=== PATIENT | male | born 1950 | race Caucasian/White ===

== ENCOUNTER 2019-10-13 06:35 | Inpatient (IN) | payer OTHER, BC ==
[2019-09-29 13:00] VITALS: BMI 38.0
[2019-10-13] MEDS ORDERED: MIDAZOLAM HCL 2 MG/2 ML SINGLE DOSE VIAL ONE (07:06)
[2019-10-13] MEDS ORDERED: BUPIVACAINE LIPOSOME/PF (EXPAREL) 266 MG/20 ML VIAL ONE (07:06)
[2019-10-13] MEDS ORDERED: SODIUM CHLORIDE 0.9% P/F 10 ML VIAL IJ ONE (07:07)
[2019-10-13] MEDS ORDERED: CEFAZOLIN 3 GM in DEXTROSE 5%-WATER - 100 ML IVPB ONE (07:44)
[2019-10-13] MEDS ORDERED: TRANEXAMIC ACID 1000 MG/10 ML VIAL IVPUSH ONE (07:44)
[2019-10-13] MEDS ORDERED: CELECOXIB 200 MG CAPSULE PO ONE (07:44)
[2019-10-13] MEDS ORDERED: ceFAZolin SODIUM 1 GM VIAL ONE ×3 (07:47→17:26)
[2019-10-13] MEDS ORDERED: VANCOMYCIN 1,000 MG VIAL (RESTRICTED TO ID ONLY) ONE (07:48)
--- NOTE | 2019-10-13 07:58 | HP ---
Satellite [facility] - Chief Complaint Chief Complaint: left knee pain - Past Medical History Allergies/Adverse Reactions: Allergies Allergy/AdvReac Type Severity Reaction Status Date / Time No Known Allergies Allergy Verified 09/29/19 13:05 - Current Medications Current Medications: Home Medications Medication Instructions Recorded Aspirin [ASA -] 162 mg PO DAILY 09/29/19 Carvedilol 12.5 mg PO HS 09/29/19 Ciclopirox Olamine [Ciclopirox] 15 gm TP HS 09/29/19 Diltiazem HCl [Cartia Xt] 120 mg PO HS 09/29/19 Ferrous Sulfate [Iron] 325 mg PO DAILY 09/29/19 Insulin Glargine,Hum.rec.anlog 15 unit SQ DAILY 09/29/19 [Lantus] Multivit-Mins/Iron/Folic/Lycop 1 each PO DAILY 09/29/19 [Centrum Men's Tablet] Olmesartan Medoxomil [Benicar (Nf)] 40 mg PO HS 09/29/19 Spironolactone [Aldactone] 25 mg PO HS 09/29/19 metFORMIN HCL [Metformin HCl] 500 mg PO QID 09/29/19 Satellite Physical Exam - Physical Examination Vital Signs: Vital Signs Period Temp Pulse Resp BP Sys/Prather Pulse Ox Last 24 Hr 98.2 F 60 18 127/75 General Appearance: Well Nourished, Well Developed, Alert & Oriented x3 ENT: Clear Lung: Normal air movement Extremities: Other (left knee- + swelling, + ttp, decr rom, nvi, xrays show grade 4 tricomaprtmental djd) Neurological: Intact, Alert, Oriented Satellite Impression/Plan - Impression/Plan Impression: left knee djd Operative Procedure: left ila tkr Date to be Performed: 10/13/19
[2019-10-13] MEDS ORDERED: ONDANSETRON 4 MG/2 ML VIAL ONE (08:54)
[2019-10-13] MEDS ORDERED: PROPOFOL 20 ML ONE ×2 (08:54→10:17)
[2019-10-13] MEDS ORDERED: TRANEXAMIC ACID 1000 MG/10 ML VIAL ONE (08:54)
[2019-10-13] MEDS ORDERED: DEXAMETHASONE SOD PHOSPHATE 4 MG/1 ML VIAL ONE (08:54)
[2019-10-13] MEDS ORDERED: SUCCINYLCHOLINE CHLORIDE 200 MG/10 ML SYRINGE ONE (09:04)
[2019-10-13] MEDS ORDERED: BUPIVACAINE HCL/PF 0.5% (5MG/ML) 10 ML VIAL ONE (09:06)
[2019-10-13] MEDS ORDERED: MAGNESIUM HYDROX 2400MG/30ML ORAL SUSPENSION 30 ML CUP PO PRN (09:41)
[2019-10-13] MEDS ORDERED: ONDANSETRON 4 MG/2 ML VIAL IVPUSH PRN (09:41)
[2019-10-13] MEDS ORDERED: MAG HYDROX/AL HYDROX/SIMETH 30 ML UNIT-DOSE CUP PO PRN (09:41)
[2019-10-13] MEDS ORDERED: LACTATED RINGERS SOLUTION 1,000 ML IV SCH (09:45)
--- NOTE | 2019-10-13 09:48 | EKG ---
Test Reason : Blood Pressure : / mmHG Vent. Rate : 092 BPM Atrial Rate : 092 BPM P-R Int : 168 ms QRS Dur : 138 ms QT Int : 388 ms P-R-T Axes : 046 -51 094 degrees QTc Int : 479 ms SINUS RHYTHM WITH FREQUENT PREMATURE VENTRICULAR COMPLEXES POSSIBLE LEFT ATRIAL ENLARGEMENT LEFT AXIS DEVIATION LEFT BUNDLE BRANCH BLOCK ABNORMAL ECG NO PREVIOUS ECGS AVAILABLE Confirmed by MD Pablo, Carlitos ([id number]) on 10/13/2019 9:48:29 AM Referred By: Abraham Royal Confirmed By:Carlitos Shah MD
[2019-10-13] MEDS ORDERED: PATIENT'S OWN MEDICATION (NON-FORMULARY) (Insulin Glargine,Hum.Rec.Anlog [Lantus] 15 UNIT) SQ SCH (10:00)
[2019-10-13] MEDS ORDERED: MULTIVIT MINS PO SCH (10:00)
[2019-10-13] MEDS ORDERED: [UNRECOGNIZED DRUG - OTHER] PO SCH (10:00)
[2019-10-13] MEDS ORDERED: FOLIC PO SCH (10:00)
[2019-10-13] MEDS ORDERED: LYCOP PO SCH (10:00)
[2019-10-13] MEDS ORDERED: IRON PO SCH (10:00)
[2019-10-13] MEDS ORDERED: MULTIVITAMINS (DAILY MVI) TABLET (FP) PO SCH (10:00)
[2019-10-13] MEDS ORDERED: VANCOMYCIN 1,000 MG VIAL (RESTRICTED TO ID ONLY) IVPB ONE (10:50)
[2019-10-13] MEDS: ACETAMINOPHEN 325 MG TABLET (FP) PO SCH ×3 (12:00→23:49)
[2019-10-13] MEDS ORDERED: traMADol HCL 50 MG TABLET PO PRN (12:02)
[2019-10-13] MEDS ORDERED: oxyCODONE HCL 5 MG TABLET PO PRN (12:02)
[2019-10-13] MEDS: oxyCODONE HCL 5 MG TABLET PO PRN ×2 (14:36→23:48)
[2019-10-13] MEDS: metFORMIN HCL 500 MG TABLET (FP) PO SCH ×4 (15:00→21:13)
[2019-10-13] MEDS: INSULIN SLIDING SCALE (NOVOLOG) 1 VIAL SQ SCH ×3 (15:13→21:21)
[2019-10-13] MEDS: MULTIVITAMINS THER W-MINERALS COMBO TABLET (FP) PO SCH (15:41)
[2019-10-13] MEDS: FERROUS SO4 325 MG TABLET (FP) PO SCH (15:41)
[2019-10-13] MEDS: PANTOPRAZOLE 40 MG TABLET (FP) PO SCH (15:41)
--- NOTE | 2019-10-13 17:06 | SPEC ---
DATE OF OPERATION: 10/13/2019 PREOPERATIVE DIAGNOSIS: Degenerative joint disease, left knee. POSTOPERATIVE DIAGNOSIS: Degenerative joint disease, left knee. PROCEDURE: Press-Fit left total knee replacement with robotic-assisted navigation (MAKOplasty). SURGICAL ATTENDING: Abraham Royal MD ORDER DEPARTMENT SUPERVISOR: AMPARO Reeves ANESTHESIA: Regional and spinal. CLOSURE: A Triathlon Press-Fit knee system with a 7 femur, 6 tibia, 11 PS polyethylene, a 38 Press-Fit patella; No. 1 Vicryl, fascia; 0 and 2-0 for subcutaneous; and 3-0 Monocryl subcuticular with skin glue for skin; 4-0 undyed Vicryl for pin sites. ESTIMATED BLOOD LOSS: Less than 100 mL. COMPLICATIONS: None. CONDITION: To recovery room in stable condition. DESCRIPTION OF OPERATIVE PROCEDURE: Patient was taken to the operating room on October 13, 2019. Regional and spinal anesthesia was administered by the anesthesiologist. IV Kefzol was administered prophylactically prior to the case as well as TXA. The left lower extremity was prepped and draped in the usual sterile fashion. The midline 10- to 12-cm longitudinal incision was made. Hemostasis was achieved with Bovie cautery. Sharp dissection was carried down to the extensor mechanism which was perform the procedure. Medial parapatellar arthrotomy was then performed, leaving a cuff of tissue for later closure. The patella was inverted and the knee was flexed up. The fat pad was excised. Subperiosteal dissection was done on the anteromedial proximal tibia until the knee was able to be brought forward. This was facilitated by taking the ACL, PCL and medial and lateral menisci. Checkpoints were placed in both the femur and in the tibia. Two parallel threaded pins were drilled superior to the knee joint through the already made incision from anterior to posterior just going through the anterior cortex but just engaging but not going through the posterior cortex. Two threaded pins were drilled through 2 small stab incisions in parallel fashion 1 handbreadth below the tibial tubercle through the anterior cortex of the tibia and engaging but not going through the posterior cortex. Both sets of pins were attached to navigation arrays for the GABRIELA system. The knee was then registered with the navigation system with center of rotation of the hip, medial and lateral malleoli and multiple sites both on the tibia and on the femur. Confirmation of excellent registration was confirmed by "popping the bubbles." At this time, the knee was thoroughly inspected to remove all osteophytes around the knee. The knee was then tensioned in varus/valgus at both full extension and at 90 degrees of flexion to ascertain our gaps. The virtual position of the components was optimized to ensure equal gaps throughout the range of motion. Once this was performed, the robot was brought into the field, was registered. The bone was cut as per the specifications on both the tibia and on the femur. The box cuts were then made as well. Excellent trial stability was obtained on the femur. The tibial baseplate was allowed to "find itself" and then was clipped into place. Confirmation of excellent external rotation of that component was confirmed by the navigation device as well.The patella was calibered for thickness and cut at the appropriate level. The appropriate lollipop was used to drill 3 holes in the patella and a trial asymmetric patellar button was applied. The knee was taken through a range of motion and found to have excellent stability from full extension to full flexion with excellent tracking of the patella. The trial components were then removed. The lug holes were drilled in the femur. The cementless keel was punched in the tibia. The real Press-Fit components were malleted into place, first with the tibia and then with the femur, and then the patella was crimped into place as well. The real polyethylene liner was then clipped into place. Range of motion, stability and tracking were as described earlier. The knee was thoroughly irrigated with copious amounts of irrigation. Vancomycin powder was placed inside the joint. The medial parapatellar arthrotomy was then closed using No. 1 Vicryl interrupted suture. Post closure of the arthrotomy, the knee was taken through a range of motion and found to have no undue tension on the repair. The subcutaneous was then pulse antibiotic irrigated, closed with 0 and 2-0 Vicryl and 3-0 Monocryl subcuticular with skin glue for the skin. Prior to closure, the checkpoints were removed as were the threaded pins. The tibial pin sites were closed with 4-0 undyed Vicryl. A sterile pressure Aquacel dressing was applied. No tourniquet was used during the case. The total blood loss was approximately 100 mL. No complication. Patient was transferred to recovery in stable condition. Chris RHODES/[id number]
[2019-10-13] MEDS ORDERED: DEXTROSE 5%-WATER 100 ML IVPB ONE (17:26)
[2019-10-13] MEDS: CEFAZOLIN 3 GM in DEXTROSE 5%-WATER 100 ML IVPB SCH (17:50)
[2019-10-13] MEDS: SPIRONOLACTONE 25 MG TABLET (FP) PO SCH (21:13)
[2019-10-13] MEDS: SENNOSIDES/DOCUSATE COMBO (SENNA PLUS) TABLET (UD) PO SCH (21:14)
[2019-10-13] MEDS: oxyCODONE HCL 10 MG SUSTAINED ACTING TABLET PO SCH (21:14)
[2019-10-13] MEDS: CARVEDILOL 12.5 MG TABLET (FP) PO SCH (21:14)
[2019-10-13] MEDS: VALSARTAN 160 MG TABLET (UD) PO SCH (21:14)
[2019-10-13] MEDS ORDERED: PATIENT'S OWN MEDICATION (NON-FORMULARY) (Olmesartan Medoxomil 40 MG) PO SCH (22:00)
[2019-10-14] MEDS ORDERED: DEXTROSE 5%-WATER 100 ML IVPB ONE (00:21)
[2019-10-14] MEDS ORDERED: ceFAZolin SODIUM 1 GM VIAL ONE (00:21)
[2019-10-14] MEDS: CEFAZOLIN 3 GM in DEXTROSE 5%-WATER 100 ML IVPB SCH (02:05)
[2019-10-14] MEDS: oxyCODONE HCL 5 MG TABLET PO PRN (06:06)
[2019-10-14] MEDS: ACETAMINOPHEN 325 MG TABLET (FP) PO SCH ×3 (06:07→18:40)
[2019-10-14] MEDS: INSULIN SLIDING SCALE (NOVOLOG) 1 VIAL SQ SCH ×4 (06:08→21:39)
[2019-10-14] MEDS: INSULIN (LEVEMIR) 100 UNITS/ML UNITS SQ SCH (08:00)
[2019-10-14 08:06] LABS: HEMATOCRIT 35.6 % (35.4-49); HEMOGLOBIN 12.2 GM/dl (11.7-16.9); MCH 33.2 pg (25.7-33.7); MCHC 34.2 g/dl (32.0-35.9); MEAN PLT VOLUME 8.9 fl (7.5-11.1); PLATELET COUNT 197 K/MM3 (134-434); RBC 3.67 M/mm3 (4.00-5.60); RDW 13.4 % (11.9-15.9); WHITE BLOOD COUNT 15.9 K/mm3 (4.0-10.8)
[2019-10-14] MEDS: MULTIVITAMINS THER W-MINERALS COMBO TABLET (FP) PO SCH ×2 (08:34→10:00)
[2019-10-14] MEDS: SENNOSIDES/DOCUSATE COMBO (SENNA PLUS) TABLET (UD) PO SCH ×3 (08:34→21:41)
--- NOTE | 2019-10-14 08:35 | CONSULT ---
Consult - Past Medical History Cardio/Vascular: Yes: HTN, Hyperlipdemia, Other (cardiomyopathy) Gastrointestinal: Yes: Constipation, GERD Musculoskeletal: Yes: Osteoarthritis Endocrine: Yes: Diabetes Mellitus, Other (obesity) - Alcohol/Substance Use Hx Alcohol Use: No - Smoking History Smoking history: Former smoker Have you smoked in the past 12 months: Yes If you are a former smoker, when did you quit?: 1 month Home Medications - Allergies Allergies/Adverse Reactions: Allergies Allergy/AdvReac Type Severity Reaction Status Date / Time lisinopril AdvReac Severe COUGHING Verified 10/13/19 08:32 - Home Medications Home Medications: Ambulatory Orders Carvedilol 12.5 mg PO HS 09/29/19 Ciclopirox Olamine [Ciclopirox] 15 gm TP HS 09/29/19 Diltiazem HCl [Cartia Xt] 120 mg PO HS 09/29/19 Ferrous Sulfate [Iron] 325 mg PO DAILY 09/29/19 Insulin Glargine,Hum.rec.anlog [Lantus] 15 unit SQ DAILY 09/29/19 Multivit-Mins/Iron/Folic/Lycop [Centrum Men's Tablet] 1 each PO DAILY 09/29/19 Olmesartan Medoxomil [Benicar -] 40 mg PO HS 09/29/19 Spironolactone [Aldactone -] 25 mg PO HS 09/29/19 metFORMIN HCL [Metformin HCl] 500 mg PO QID 09/29/19 Aspirin [ASA -] 325 mg PO DAILY@0800 tablet 10/15/19 Oxycodone HCl/Acetaminophen [Percocet 5-325 mg Tablet -] 1 - 2 tab PO Q6H #50 tab MDD 8 10/15/19 Review of Systems - Review of Systems Cardiovascular: denies: Chest Pain Respiratory: denies: Cough, SOB Gastrointestinal: reports: Constipation Musculoskeletal: reports: Joint Pain Neurological: reports: No Symptoms Physical Exam Vital Signs: Vital Signs Temperature 97.6 F 10/14/19 06:00 Pulse Rate 87 10/14/19 06:00 Respiratory Rate 20 10/14/19 06:00 Blood Pressure 125/69 10/14/19 06:00 O2 Sat by Pulse Oximetry (%) 92 L 10/14/19 06:00 Cardiovascular: Yes: S1, S2 Respiratory: Yes: Regular, CTA Bilaterally Gastrointestinal: Yes: Normal Bowel Sounds, Soft Edema: No Wound/Incision: Yes: Dressing Dry and Intact Neurological: Yes: Alert, Oriented Labs: CBC, BMP 10/14/19 07:27 Problem List - Problems (1) Diabetes Assessment/Plan: metFORMIN HCL [Glucophage -] 500 mg PO QID Insulin (Levemir) [Levemir Vial] 15 units SQ ACBK bgm Code(s): E11.9 - TYPE 2 DIABETES MELLITUS WITHOUT COMPLICATIONS (2) HTN (hypertension) Assessment/Plan: Carvedilol [Coreg -] 12.5 mg PO HS Diltiazem Cd [Cardizem Cd -] 120 mg PO HS Spironolactone [Aldactone -] 25 mg PO HS Valsartan [Diovan -] 320 mg PO HS Code(s): I10 - ESSENTIAL (PRIMARY) HYPERTENSION (3) Obesity Code(s): E66.9 - OBESITY, UNSPECIFIED (4) Osteoarthritis Assessment/Plan: s/p left ila tkr pod #1 Pantoprazole Sodium [Protonix -] 40 mg PO DAILY Aspirin [ASA -] 325 mg PO DAILY@0800 Code(s): M19.90 - UNSPECIFIED OSTEOARTHRITIS, UNSPECIFIED SITE Assessment/Plan Orders 10/13/19 10:00 Pantoprazole Sodium [Protonix -] 40 mg PO DAILY metFORMIN HCL [Glucophage -] 500 mg PO QID 10/13/19 22:00 Carvedilol [Coreg -] 12.5 mg PO HS Diltiazem Cd [Cardizem Cd -] 120 mg PO HS Spironolactone [Aldactone -] 25 mg PO HS Valsartan [Diovan -] 320 mg PO HS 10/14/19 07:00 Insulin (Levemir) [Levemir Vial] 15 units SQ ACBK 10/14/19 08:00 Aspirin [ASA -] 325 mg PO DAILY@0800
[2019-10-14] MEDS: metFORMIN HCL 500 MG TABLET (FP) PO SCH ×4 (09:24→21:41)
[2019-10-14] MEDS: oxyCODONE HCL 10 MG SUSTAINED ACTING TABLET PO SCH ×2 (09:24→21:40)
[2019-10-14] MEDS: FERROUS SO4 325 MG TABLET (FP) PO SCH (09:24)
[2019-10-14] MEDS: ASPIRIN 325 MG TABLET PO SCH (09:24)
[2019-10-14] MEDS: PANTOPRAZOLE 40 MG TABLET (FP) PO SCH (09:25)
--- NOTE | 2019-10-14 09:56 | PN ---
Progress Note (short form) - Note Progress Note: Ortho Pt seen and examined s/p left ila tkr pod #1 Selected Entries 10/14/19 06:00 Temperature 97.6 F Pulse Rate 87 Respiratory 20 Rate Blood Pressure 125/69 Laboratory Tests 10/14/19 07:27 WBC 15.9 H Hgb 12.2 Hct 35.6 Plt Count 197 dressing c/d/i, calf soft, nt rom 0-30, nvi a/p PT dvt ppx pain control d/c home tomorrow if stable
[2019-10-14 12:23] LABS: ALBUMIN 3.4 g/dl (3.4-5.0); BILIRUBIN,TOTAL 0.8 mg/dl (0.2-1); CALCIUM 8.2 mg/dl (8.5-10); CREATININE 0.7 mg/dl (0.55-1.3); POTASSIUM 4.1 mmol/L (3.5-5.1); TOT PROT 5.6 g/dl (6.4-8.2)
[2019-10-14] MEDS: CARVEDILOL 12.5 MG TABLET (FP) PO SCH (21:41)
[2019-10-14] MEDS: SPIRONOLACTONE 25 MG TABLET (FP) PO SCH (21:41)
[2019-10-14] MEDS: VALSARTAN 160 MG TABLET (UD) PO SCH (21:41)
[2019-10-15] MEDS: ACETAMINOPHEN 325 MG TABLET (FP) PO SCH ×3 (00:40→14:47)
[2019-10-15] MEDS: INSULIN (LEVEMIR) 100 UNITS/ML UNITS SQ SCH (07:33)
--- NOTE | 2019-10-15 07:35 | PN ---
Progress Note, Physician History of Present Illness: c/o feeling diaphoretic this am had sob which is improved - Current Medication List Current Medications: Active Medications Acetaminophen (Tylenol -) 650 mg PO Q6H [facility] Stop: 10/16/19 12:14 Last Admin: 10/15/19 06:42 Dose: 650 mg Al Hydroxide/Mg Hydroxide (Mylanta Oral Suspension -) 30 ml PO Q4H PRN PRN Reason: DYSPEPSIA Aspirin (Asa -) 325 mg PO DAILY@0800 [facility] Last Admin: 10/14/19 09:24 Dose: 325 mg Carvedilol (Coreg -) 12.5 mg PO [facility] Last Admin: 10/14/19 21:41 Dose: 12.5 mg Diltiazem HCl (Cardizem Cd -) 120 mg PO [facility] Last Admin: 10/14/19 21:41 Dose: 120 mg Ferrous Sulfate (Feosol -) 325 mg PO DAILY [facility] Last Admin: 10/14/19 09:24 Dose: 325 mg Insulin Aspart (Novolog Vial Sliding Scale -) 1 vial SQ [facility]; Protocol Last Admin: 10/14/19 21:39 Dose: 4 units Insulin Detemir (Levemir Vial) 15 units SQ ACBK [facility] Last Admin: 10/14/19 08:00 Dose: 15 units Magnesium Hydroxide (Milk Of Magnesia -) 30 ml PO PRN PRN PRN Reason: CONSTIPATION Metformin HCl (Glucophage -) 500 mg PO QID [facility] Last Admin: 10/14/19 21:41 Dose: 500 mg Multivitamins/Minerals (Theragran-M) 1 each PO DAILY [facility] Last Admin: 10/14/19 10:00 Dose: 1 each Ondansetron HCl (Zofran Injection) 4 mg IVPUSH Q6H PRN PRN Reason: NAUSEA Oxycodone HCl (Roxicodone -) 5 mg PO Q3H PRN PRN Reason: PAIN LEVEL 4 - 6 Oxycodone HCl (Roxicodone -) 10 mg PO Q3H PRN PRN Reason: PAIN LEVEL 7 - 10 Last Admin: 10/14/19 06:06 Dose: 10 mg Oxycodone HCl (Oxycontin -) 10 mg PO BID [facility] Stop: 10/16/19 12:04 Last Admin: 10/14/19 21:40 Dose: 10 mg Pantoprazole Sodium (Protonix -) 40 mg PO DAILY [facility] Last Admin: 10/14/19 09:25 Dose: 40 mg Senna/Docusate Sodium (Pericolace -) 2 tablet PO BID [facility] Last Admin: 10/14/19 21:41 Dose: 2 tablet Spironolactone (Aldactone -) 25 mg PO HS [facility] Last Admin: 10/14/19 21:41 Dose: 25 mg Tramadol HCl (Ultram -) 50 mg PO Q3H PRN PRN Reason: PAIN LEVEL 1 - 3 Valsartan (Diovan -) 320 mg PO [facility] Last Admin: 10/14/19 21:41 Dose: 320 mg - Objective Vital Signs: Vital Signs Temperature 98.3 F 10/15/19 06:00 Pulse Rate 82 10/15/19 06:00 Respiratory Rate 20 10/15/19 06:00 Blood Pressure 154/77 10/15/19 06:00 O2 Sat by Pulse Oximetry (%) 93 L 10/15/19 06:00 Cardiovascular: Yes: S1, S2 Respiratory: Yes: Regular, CTA Bilaterally Gastrointestinal: Yes: Normal Bowel Sounds, Soft Edema: No Labs: CBC, BMP 10/14/19 11:55 Problem List - Problems (1) Diabetes Assessment/Plan: metFORMIN HCL [Glucophage -] 500 mg PO QID Insulin (Levemir) [Levemir Vial] 15 units SQ ACBK bgm Code(s): E11.9 - TYPE 2 DIABETES MELLITUS WITHOUT COMPLICATIONS (2) HTN (hypertension) Assessment/Plan: Carvedilol [Coreg -] 12.5 mg PO HS Diltiazem Cd [Cardizem Cd -] 120 mg PO HS Spironolactone [Aldactone -] 25 mg PO HS Valsartan [Diovan -] 320 mg PO HS Code(s): I10 - ESSENTIAL (PRIMARY) HYPERTENSION (3) Osteoarthritis Assessment/Plan: s/p left ila tkr pod #1 Pantoprazole Sodium [Protonix -] 40 mg PO DAILY Aspirin [ASA -] 325 mg PO DAILY@0800 Code(s): M19.90 - UNSPECIFIED OSTEOARTHRITIS, UNSPECIFIED SITE (4) Obesity Code(s): E66.9 - OBESITY, UNSPECIFIED (5) Diaphoresis Assessment/Plan: labs/cxr/ekg Code(s): R61 - GENERALIZED HYPERHIDROSIS
[2019-10-15] MEDS: INSULIN SLIDING SCALE (NOVOLOG) 1 VIAL SQ SCH ×4 (07:36→22:09)
--- NOTE | 2019-10-15 07:52 | PN ---
Progress Note (short form) - Note Progress Note: Ortho Pt seen and examined s/p left ila tkr pod #2, diaphoretic, currentyl having ekg and chest xray Selected Entries 10/15/19 06:00 Temperature 98.3 F Pulse Rate 82 Respiratory 20 Rate Blood Pressure 154/77 Laboratory Tests 10/15/19 07:25 WBC Pending Hgb Pending Hct Pending Plt Count Pending dressing c/d/i, calf soft, nt rom 0-40, nvi a/p med f/u PT dvt ppx pain control will follow
--- NOTE | 2019-10-15 07:54 | DS ---
Physical Examination Vital Signs: Vital Signs Temperature 98.3 F 10/15/19 06:00 Pulse Rate 82 10/15/19 06:00 Respiratory Rate 20 10/15/19 06:00 Blood Pressure 154/77 10/15/19 06:00 O2 Sat by Pulse Oximetry (%) 93 L 10/15/19 06:00 Labs: CBC, BMP 10/14/19 11:55 Discharge Summary Problems reviewed: Yes Reason For Visit: OSTEOARTHRITIS Procedures: Principal: left tkr Hospital Course: admitted for elective left ila tkr, post-op per protocol, stable for d/c Condition: Good - Instructions Diet, Activity, Other Instructions: Post-op Instructions-Total Knee Replacement Call the office for a follow-up appointment in 1 week - [phone] Aspirin 325mg daily for 6 weeks. Pain medication was sent into your pharmacy. Apply Graduated Compression Stockings (TEDs) to both lower extremities- remove daily for hygiene ONLY Apply Sequential Compression Device (SCDs) to both Lower extremities remove for PT and hygiene ONLY Apply cold packs to affected area for 15 minutes every 2 hours. Physical Therapist will come to your home for the first 5 days. You will be set up with outpatient PT at your first post-operative visit. Patient may ambulate as tolerated-encourage self care (at least every 2-3 hours while awake) with walker or cane Maintain Aquacel (waterproof) dressing to operative wound (will be removed by surgeon at first office visit) Shower with Aquacel dressing in place-if Aquacel integrity compromised, remove and apply dry sterile dressing and notify Orthopedist. DO NOT SHOWER unless Orthopedists approves without Aquacel dressing CONTACT THE OFFICE FOR ANY CHANGE IN YOUR CONDITION (for example-fever greater than 102 degrees, excessive bleeding from operative site, purulent drainage, severe swelling or pain) GO TO THE EMERGENCY ROOM IF THERE IS A MEDICAL EMERGENCY Knee Precautions: * Keep a rolled towel under affected heel while in bed or chair (to keep knee in extension) * Keep affected leg elevated except during mealtimes * DO NOT PLACE PILLOW UNDER AFFECTED KNEE * If you have any questions, please do not hesitate to call the office - . Referrals: Abraham Royal MD [Staff Physician] - Disposition: VNS/HOME HEALTH CARE - Home Medications Comprehensive Discharge Medication List: Ambulatory Orders Aspirin [ASA -] 162 mg PO DAILY 09/29/19 Carvedilol 12.5 mg PO HS 09/29/19 Ciclopirox Olamine [Ciclopirox] 15 gm TP HS 09/29/19 Diltiazem HCl [Cartia Xt] 120 mg PO HS 09/29/19 Ferrous Sulfate [Iron] 325 mg PO DAILY 09/29/19 Insulin Glargine,Hum.rec.anlog [Lantus] 15 unit SQ DAILY 09/29/19 Multivit-Mins/Iron/Folic/Lycop [Centrum Men's Tablet] 1 each PO DAILY 09/29/19 Olmesartan Medoxomil [Benicar (Nf)] 40 mg PO HS 09/29/19 Spironolactone [Aldactone] 25 mg PO HS 09/29/19 metFORMIN HCL [Metformin HCl] 500 mg PO QID 09/29/19
[2019-10-15 08:01] LABS: HEMATOCRIT 36.3 % (35.4-49); HEMOGLOBIN 11.8 GM/dl (11.7-16.9); MCH 31.6 pg (25.7-33.7); MCHC 32.5 g/dl (32.0-35.9); MEAN PLT VOLUME 9.2 fl (7.5-11.1); PLATELET COUNT 207 K/MM3 (134-434); RBC 3.74 M/mm3 (4.00-5.60); RDW 13.4 % (11.9-15.9); WHITE BLOOD COUNT 19.8 K/mm3 (4.0-10.8)
[2019-10-15] MEDS: ASPIRIN 325 MG TABLET PO SCH (08:53)
[2019-10-15 09:38] LABS: ALBUMIN 3.2 g/dl (3.4-5.0); BILIRUBIN,TOTAL 1.2 mg/dl (0.2-1); CALCIUM 7.9 mg/dl (8.5-10); CREATININE 0.9 mg/dl (0.55-1.3); POTASSIUM 3.8 mmol/L (3.5-5.1); TOT PROT 5.8 g/dl (6.4-8.2)
[2019-10-15] MEDS: metFORMIN HCL 500 MG TABLET (FP) PO SCH ×2 (10:05→15:04)
[2019-10-15] MEDS: FERROUS SO4 325 MG TABLET (FP) PO SCH (10:05)
[2019-10-15] MEDS: PANTOPRAZOLE 40 MG TABLET (FP) PO SCH (10:06)
[2019-10-15] MEDS: oxyCODONE HCL 10 MG SUSTAINED ACTING TABLET PO SCH ×2 (10:06→22:03)
[2019-10-15] MEDS: MULTIVITAMINS THER W-MINERALS COMBO TABLET (FP) PO SCH (10:06)
[2019-10-15] MEDS: SENNOSIDES/DOCUSATE COMBO (SENNA PLUS) TABLET (UD) PO SCH ×2 (10:06→22:03)
--- NOTE | 2019-10-15 10:58 | PN ---
Progress Note (short form) - Note Progress Note: PULMONARY CONSULTATION DICTATED 10/15/19 IMP DYSPNEA/DAIPHORESIS S/P LEFT TKR ?ATELECTASIS,?PE,?CARDIAC CARDIOMYOPATHY DM HTN H/O TOBACCO USE OBESITY PLAN O2 INCENTIVE SPIROMETER D-DIMER IF ELEVATED CHEST CTA PT DVT PROPHYLAXIS DR REMY Problem List - Problems (1) Dyspnea Code(s): R06.00 - DYSPNEA, UNSPECIFIED (2) Diabetes Code(s): E11.9 - TYPE 2 DIABETES MELLITUS WITHOUT COMPLICATIONS (3) Diaphoresis Code(s): R61 - GENERALIZED HYPERHIDROSIS (4) HTN (hypertension) Code(s): I10 - ESSENTIAL (PRIMARY) HYPERTENSION (5) Obesity Code(s): E66.9 - OBESITY, UNSPECIFIED (6) Osteoarthritis Code(s): M19.90 - UNSPECIFIED OSTEOARTHRITIS, UNSPECIFIED SITE
--- NOTE | 2019-10-15 11:30 | CONS ---
PULMONARY CONSULTATION DATE OF CONSULTATION: 10/15/2019 REFERRING PHYSICIAN: Best Abdullahi MD HISTORY: Patient is a 69-year-old male past medical history of cardiomyopathy, hyperlipidemia, GERD, hypertension, obesity, diabetes, osteoarthritis, history of tobacco use approximately a pack per day for many years quit 2012. Admitted to [facility] on October 13 for left total knee replacement. Patient underwent a left total knee replacement with robotic-assisted navigation MAKOplasty on October 13. Postoperative course essentially was unremarkable until this morning when he was noted to be diaphoretic and short of breath. He denied any complaints of chest pain, nausea, or vomiting. taking all of his pills at once. Patient has complaints of dyspnea on exertion. Denies any chest pains or palpitations. Denies any cough or hemoptysis. Patient underwent a chest x-ray. Revealed no acute infiltrates. EKG revealed no acute changes. PAST MEDICAL HISTORY: Again includes cardiomyopathy, hypertension, diabetes, obesity, osteoarthritis, and likely obstructive sleep apnea. REVIEW OF SYSTEMS: Positive dyspnea on exertion. No chest pain, no palpitations, no cough, no hemoptysis, no abdominal pain. Positive left lower extremity knee pain secondary a recent incision. CURRENT MEDICATIONS: Include Zofran, Mylanta, Coreg, Glucophage, Cardizem, Milk of Magnesia, Kellie-Colace, NovoLog, Levemir, Feosol, Aldactone, aspirin, Roxicodone, Ultram, and Protonix. SOCIAL HISTORY: History of tobacco use. Quit in 2012. 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 PHYSICAL EXAMINATION: General: Patient is an obese male awake and alert. Mildly dyspneic. No acute distress. Vital Signs: He is afebrile. Blood pressure 154/77, respiratory rate is 20, O2 saturation is 93% on 2 L nasal cannula. HEENT: Normocephalic, atraumatic. Neck: Supple. Heart: Regular with S1, S2. Chest: Diminished breath sounds bilaterally. Abdomen: Soft. Bowel sounds are positive. Extremities: No cyanosis or edema. LABORATORIES: Sodium is 134, BUN 18, creatinine 0.9. WBCs 19.8, hemoglobin 11.8, hematocrit 36.3 with a platelet count of 207,000. Chest x-ray: No infiltrates, no effusions. IMPRESSION: 1. Diaphoresis status post left total knee replacement, possible postoperative atelectasis, rule out cardiac. Cannot rule out possible pulmonary embolus. 2. Cardiomyopathy. 3. Diabetes. 4. Hypertension. 5. Obesity. 6. History of tobacco use. PLAN: Supplemental O2. Incentive spirometry. Inhaled bronchodilators p.r.n. D-dimer, if elevated, obtain CT scan of the chest to rule out PE. Continue with physical therapy and DVT prophylaxis. JYOTI REMY M.D. [id number]
[2019-10-15 11:51] LABS: N-TERMINAL BNP 2436.24 pg/ml (5-125)
--- NOTE | 2019-10-15 11:59 | EKG ---
Test Reason : Blood Pressure : / mmHG Vent. Rate : 100 BPM Atrial Rate : 100 BPM P-R Int : 162 ms QRS Dur : 138 ms QT Int : 370 ms P-R-T Axes : 037 -52 094 degrees QTc Int : 477 ms SINUS RHYTHM WITH FREQUENT PREMATURE VENTRICULAR COMPLEXES POSSIBLE LEFT ATRIAL ENLARGEMENT LEFT AXIS DEVIATION LEFT BUNDLE BRANCH BLOCK ABNORMAL ECG WHEN COMPARED WITH ECG OF 13-OCT-2019 08:20, NO SIGNIFICANT CHANGE WAS FOUND Confirmed by JOS YEH, RICHI ([id number]) on 10/15/2019 11:59:28 AM Referred By: Abraham Royal Confirmed By:RICHI ARGUELLO MD
[2019-10-15 13:20] LABS: EPITHELIAL CELLS RARE /hpf
[2019-10-15] MEDS ORDERED: FUROSEMIDE 40 MG/4 ML INJECTABLE VIAL IVPUSH ONE (15:00)
--- NOTE | 2019-10-15 15:16 | CON.CARD ---
Consult Consult Specialty:: Cardiology Referred by:: Lele Reason for Consultation:: SOB - History of Present Illness Chief Complaint: sob History of Present Illness: He is a 69 year old man with a history of smoking, HTN, NIDDM, ?CHF [place], LBBB, s/p Lt tkr now complaining of postop sob. Seen by pulmonary, elevated d dimer but CTA without PE. Possible RUL pneumonia. Nuclear stress test 08/22/18 normal perfusion ef 36% Echo 08/20/18 ef 45-50 mild MR ECG LBBB Echo ordered. - History Source History Provided By: Patient, Medical Record - Past Medical History Cardio/Vascular: Yes: HTN, Hyperlipdemia, Other (cardiomyopathy) Gastrointestinal: Yes: Constipation, GERD Musculoskeletal: Yes: Osteoarthritis Endocrine: Yes: Diabetes Mellitus, Other (obesity) - Alcohol/Substance Use Hx Alcohol Use: No - Smoking History Smoking history: Former smoker Have you smoked in the past 12 months: Yes If you are a former smoker, when did you quit?: 1 month Home Medications - Allergies Allergies/Adverse Reactions: Allergies Allergy/AdvReac Type Severity Reaction Status Date / Time lisinopril AdvReac Severe COUGHING Verified 10/13/19 08:32 - Home Medications Home Medications: Ambulatory Orders Carvedilol 12.5 mg PO HS 09/29/19 Ciclopirox Olamine [Ciclopirox] 15 gm TP HS 09/29/19 Diltiazem HCl [Cartia Xt] 120 mg PO HS 09/29/19 Ferrous Sulfate [Iron] 325 mg PO DAILY 09/29/19 Insulin Glargine,Hum.rec.anlog [Lantus] 15 unit SQ DAILY 09/29/19 Multivit-Mins/Iron/Folic/Lycop [Centrum Men's Tablet] 1 each PO DAILY 09/29/19 Olmesartan Medoxomil [Benicar -] 40 mg PO HS 09/29/19 Spironolactone [Aldactone -] 25 mg PO HS 09/29/19 metFORMIN HCL [Metformin HCl] 500 mg PO QID 09/29/19 Aspirin [ASA -] 325 mg PO DAILY@0800 tablet 10/15/19 Oxycodone HCl/Acetaminophen [Percocet 5-325 mg Tablet -] 1 - 2 tab PO Q6H #50 tab MDD 8 10/15/19 Vital Signs: Vital Signs Temperature 98.5 F 10/15/19 14:23 Pulse Rate 107 H 10/15/19 14:23 Respiratory Rate 19 10/15/19 14:23 Blood Pressure 130/87 10/15/19 14:23 O2 Sat by Pulse Oximetry (%) 90 L 10/15/19 14:23 - Other Data Labs, Other Data: CBC, BMP 10/15/19 07:25 10/15/19 08:55 Troponin, BNP 10/15/19 10/15/19 08:55 08:55 Troponin I 0.05 B-Natriuretic Peptide 2436.24 H Troponin, BNP 10/15/19 10/15/19 08:55 08:55 Troponin I 0.05 B-Natriuretic Peptide 2436.24 H Imaging - Results Chest X-ray: Report Reviewed EKG: Report Reviewed (lbbb) Assessment/Plan He is a 69 year old man with a history of smoking, HTN, NIDDM, ?CHF [place] Dr Handy in [place], LBBB, s/p Lt tkr now complaining of postop sob. Seen by pulmonary, elevated d dimer but CTA without PE. Possible RUL pneumonia. Nuclear stress test 08/22/18 normal perfusion ef 36% Echo 08/20/18 ef 45-50 mild MR ECG LBBB Echo ordered. SOB -unclear etiology, doubt PE given recent CTA -echo ordered, low likelihood ACS. -BNP is mildly elevated, no chf on CXR. Mild CHF on exam. Continue lasix and spironolactone. -CT does show possible RUL pneumonia. Pulm to follow.
[2019-10-15] MEDS ORDERED: INSULIN (NOVOLOG) ASPART 100 UNITS/ML 10ML VIAL ONE (16:30)
[2019-10-15] MEDS ORDERED: FUROSEMIDE 40 MG/4 ML INJECTABLE VIAL ONE (16:39)
[2019-10-15] MEDS ORDERED: DEXTROSE 5%-WATER 100 ML IVPB ONE (17:10)
[2019-10-15] MEDS ORDERED: PIPERACILLIN/TAZOBACTAM 4.5 GM VIAL IVPB ONE (17:10)
[2019-10-15] MEDS: PIPERACILLIN/TAZOB 4.5 GM 4.5 GM in DEXTROSE 5%-WATER 100 ML IVPB SCH (17:24)
[2019-10-15] MEDS: CARVEDILOL 12.5 MG TABLET (FP) PO SCH (22:03)
[2019-10-15] MEDS: SPIRONOLACTONE 25 MG TABLET (FP) PO SCH (22:03)
[2019-10-15] MEDS: VALSARTAN 160 MG TABLET (UD) PO SCH (22:03)
[2019-10-16] MEDS: ACETAMINOPHEN 325 MG TABLET (FP) PO SCH ×3 (00:24→11:16)
[2019-10-16] MEDS ORDERED: DEXTROSE 5%-WATER 100 ML IVPB ONE ×2 (00:38→08:57)
[2019-10-16] MEDS ORDERED: PIPERACILLIN/TAZOBACTAM 4.5 GM VIAL IVPB ONE ×2 (00:38→08:57)
[2019-10-16] MEDS: PIPERACILLIN/TAZOB 4.5 GM 4.5 GM in DEXTROSE 5%-WATER 100 ML IVPB SCH ×2 (01:29→09:37)
[2019-10-16] MEDS: INSULIN SLIDING SCALE (NOVOLOG) 1 VIAL SQ SCH ×2 (07:32→11:55)
[2019-10-16] MEDS: INSULIN (LEVEMIR) 100 UNITS/ML UNITS SQ SCH (07:49)
--- NOTE | 2019-10-16 08:18 | PN ---
Progress Note (short form) - Note Progress Note: Ortho Pt seen and examined s/p left ila tkr pod #3. Feeling better today. All tests have been neg to date. Selected Entries 10/16/19 06:00 Temperature 98.2 F Pulse Rate 103 H Respiratory 18 Rate Blood Pressure 134/76 Laboratory Tests 10/16/19 07:05 WBC Pending Hgb Pending Hct Pending Plt Count Pending dressing c/d/i, calf soft, nt rom 0-40, nvi a/p med f/u echo pending PT dvt ppx pain control d/c planning to rehab once medically cleared
[2019-10-16 08:23] LABS: BASO % 1.2 % (0-2.0); EOS % 0.7 % (0-4.5); HEMATOCRIT 32.2 % (35.4-49); LYMPH % 40.9 % (8-40); MCH 32.9 pg (25.7-33.7); MEAN CELL VOLUME 96.7 fl (80-96); MEAN PLT VOLUME 9.3 fl (7.5-11.1); MONO % 5.7 % (3.8-10.2); NEUT % 51.5 % (42.8-82.8); PLATELET COUNT 171 K/MM3 (134-434); RBC 3.33 M/mm3 (4.00-5.60); RDW 13.3 % (11.9-15.9); WHITE BLOOD COUNT 16.1 K/mm3 (4.0-10.8)
[2019-10-16 08:36] LABS: ALBUMIN 2.9 g/dl (3.4-5.0); BILIRUBIN,TOTAL 0.8 mg/dl (0.2-1); CALCIUM 7.7 mg/dl (8.5-10); POTASSIUM 3.7 mmol/L (3.5-5.1); TOT PROT 5.3 g/dl (6.4-8.2)
[2019-10-16] MEDS: ASPIRIN 325 MG TABLET PO SCH (08:40)
--- NOTE | 2019-10-16 09:06 | PN ---
Progress Note (short form) - Note Progress Note: ID CONSULT DICTATED POD # 3 L TKR ? EARLY RUL PNEUMONIA LEUKOCYTOSIS HX TOBACCO USE AWAIT C/S INFLUENZA SWAB CONTINUE EMPIRIC ZOSYN PULMONARY F/U F/U CT CHEST OUTPATIENT PER PULMONARY ( SMOKING HX)
[2019-10-16] MEDS: PANTOPRAZOLE 40 MG TABLET (FP) PO SCH (09:38)
[2019-10-16] MEDS: oxyCODONE HCL 10 MG SUSTAINED ACTING TABLET PO SCH (09:38)
[2019-10-16] MEDS: SENNOSIDES/DOCUSATE COMBO (SENNA PLUS) TABLET (UD) PO SCH (09:38)
[2019-10-16] MEDS: FERROUS SO4 325 MG TABLET (FP) PO SCH (09:38)
[2019-10-16] MEDS: MULTIVITAMINS THER W-MINERALS COMBO TABLET (FP) PO SCH (09:39)
--- NOTE | 2019-10-16 09:44 | CONS ---
INFECTIOUS DISEASE CONSULTATION DATE OF CONSULTATION: DATE OF DICTATION: 10/16/2019 HISTORY: The patient is a 69-year-old male with a history of heavy tobacco use history who is evaluated for possible pneumonia. The patient was admitted for an elective left total knee replacement, which was performed on October 13, 2019. He underwent a left total knee replacement with robotic-assisted navigation MAKOplasty. Postoperatively, he did well until approximately 2 days prior to admission when he developed an episode of diaphoresis and shortness of breath. A CAT scan of the chest was performed to rule out pulmonary embolism. It was negative for pulmonary embolism; however, revealed a small, patchy area in the right upper lobe, possible early infiltrate. At the present time, he is awake and alert. He reports feeling better. He has had no recurrent diaphoresis or dyspnea. He is out of bed in chair with nasal cannula oxygen. He has occasional cough, which is nonproductive. He denies any purulent sputum production or hemoptysis. No complaints of chest pain. The patient has a heavy tobacco use history. He stopped in 2010, however, resumed smoking 2 months ago but reports now stopping again. He denies any ill contacts. He did receive influenza vaccine this year. He denies history of pneumococcal vaccine. PAST MEDICAL HISTORY: Positive for osteoarthritis, cardiomyopathy, hypertension, hyperlipidemia, gastroesophageal reflux, diabetes mellitus, morbid obesity. ALLERGIES: LISINOPRIL (cough). MEDICATIONS: Include aspirin, carvedilol, diltiazem, Lantus, multivitamins, Benicar, Aldactone, metformin. SOCIAL HISTORY: He is a former smoker. Former irrigation worker. SYSTEMS REVIEW: Neurologic: No loss of consciousness, seizure activity, focal weakness. Cardiac: Positive for cardiomyopathy. Respiratory: As per HPI. Gastrointestinal: Negative vomiting or diarrhea. Genitourinary: Negative for urinary tract infection. LABORATORY DATA: White count 16.1, 51 neutrophils, 40 lymphocytes, 5 monocytes. Hematocrit 32.2, platelets 171, creatinine 1.0. Urinalysis; 0-2 white cells. Blood cultures are pending. Urine Legionella antigen pending. PHYSICAL EXAMINATION: General: He is out of bed to chair. He did not appear to be short of breath at rest on nasal cannula. Vital Signs: Temperature 98.2, blood pressure 134/76, pulse 103 regular, respirations 18 per minute. HEENT: Sclerae anicteric. Heart: Sounds S1, S2. Lungs: Diminished breath sounds throughout. No rales, rhonchi, or wheezing. Abdomen: Obese, nontender. Extremities: 1+ edema. There is a postoperative Aquacel dressing on his left knee. Negative Homans sign. IMPRESSION: 1. Postoperative day number 3 left total knee replacement. 2. Possible early right upper lobe pneumonia. 3. Leukocytosis with lymphocytosis. 4. History of tobacco use. 5. Diabetes mellitus. PLAN: Await blood cultures and urine Legionella/pneumococcal antigens. Obtain sputum culture if possible (patient reports nonproductive cough). Flu swab in light of lymphocytosis. Continue empiric Zosyn. If stable, may substitute Augmentin 875 mg p.o. b.i.d. for an additional 7 days. Pulmonary follow up. Follow up CAT scan as an outpatient per pulmonary in light of abnormal CAT scan findings and history of tobacco use. TONYA MANNING M.D. [id number]
--- NOTE | 2019-10-16 10:16 | PN ---
Progress Note (short form) - Note Progress Note: PATIENT AWAKE ALERT IN PT ROOM FEELS GOOD DENIES FEVER / CHILLS DENIES CP OR DYSPNEA READY FOR DISCHARGE
--- NOTE | 2019-10-16 11:41 | DS ---
Physical Examination Vital Signs: Vital Signs Temperature 98.2 F 10/16/19 06:00 Pulse Rate 103 H 10/16/19 06:00 Respiratory Rate 18 10/16/19 06:00 Blood Pressure 134/76 10/16/19 06:00 O2 Sat by Pulse Oximetry (%) 95 10/16/19 06:00 Labs: CBC, BMP 10/16/19 07:05 10/16/19 07:05 Discharge Summary Problems reviewed: Yes Reason For Visit: OSTEOARTHRITIS Current Active Problems Diabetes (Acute) Diaphoresis (Acute) Dyspnea (Acute) HTN (hypertension) (Acute) Obesity (Acute) Osteoarthritis (Acute) Hospital Course: admitted for elective left ila tkr, developed diaphoresis and sob, cardio, pulm were consulted, test ran which were all neg, pt has been cleared for d/c to snf. Condition: Good - Instructions Diet, Activity, Other Instructions: Post-op Instructions-Total Knee Replacement Call the office for a follow-up appointment in 1 week - [phone] Aspirin 325mg daily for 6 weeks. Pain medication was sent into your pharmacy. Apply Graduated Compression Stockings (TEDs) to both lower extremities- remove daily for hygiene ONLY Apply Sequential Compression Device (SCDs) to both Lower extremities remove for PT and hygiene ONLY Apply cold packs to affected area for 15 minutes every 2 hours. Physical Therapist will come to your home for the first 5 days. You will be set up with outpatient PT at your first post-operative visit. Patient may ambulate as tolerated-encourage self care (at least every 2-3 hours while awake) with walker or cane Maintain Aquacel (waterproof) dressing to operative wound (will be removed by surgeon at first office visit) Shower with Aquacel dressing in place-if Aquacel integrity compromised, remove and apply dry sterile dressing and notify Orthopedist. DO NOT SHOWER unless Orthopedists approves without Aquacel dressing CONTACT THE OFFICE FOR ANY CHANGE IN YOUR CONDITION (for example-fever greater than 102 degrees, excessive bleeding from operative site, purulent drainage, severe swelling or pain) GO TO THE EMERGENCY ROOM IF THERE IS A MEDICAL EMERGENCY Knee Precautions: * Keep a rolled towel under affected heel while in bed or chair (to keep knee in extension) * Keep affected leg elevated except during mealtimes * DO NOT PLACE PILLOW UNDER AFFECTED KNEE * If you have any questions, please do not hesitate to call the office - [phone]. Referrals: Abraham Royal MD [Staff Physician] - Disposition: [facility] FACILITY - Home Medications Comprehensive Discharge Medication List: Ambulatory Orders Carvedilol 12.5 mg PO HS 09/29/19 Ciclopirox Olamine [Ciclopirox] 15 gm TP HS 09/29/19 Diltiazem HCl [Cartia Xt] 120 mg PO HS 09/29/19 Ferrous Sulfate [Iron] 325 mg PO DAILY 09/29/19 Insulin Glargine,Hum.rec.anlog [Lantus] 15 unit SQ DAILY 09/29/19 Multivit-Mins/Iron/Folic/Lycop [Centrum Men's Tablet] 1 each PO DAILY 09/29/19 Olmesartan Medoxomil [Benicar -] 40 mg PO HS 09/29/19 Spironolactone [Aldactone -] 25 mg PO HS 09/29/19 metFORMIN HCL [Metformin HCl] 500 mg PO QID 09/29/19 Aspirin [ASA -] 325 mg PO DAILY@0800 tablet 10/15/19 Oxycodone HCl/Acetaminophen [Percocet 5-325 mg Tablet -] 1 - 2 tab PO Q6H #50 tab MDD 8 10/15/19 Acetaminophen [Tylenol .Regular Strength -] 650 mg PO Q6H tablet 10/16/19 Amox-Tr/K Cl [Augmentin - 875Mg Tablet] 1 tab PO BID #14 tablet 10/16/19 Insulin Sliding Scale [Novolog Vial Sliding Scale -] 1 vial SQ ACHS units 10/16 Mag Hydrox/Al Hydrox/Simeth [Mylanta Oral Suspension -] 30 ml PO Q4H PRN cup Pantoprazole Sodium [Protonix -] 40 mg PO DAILY tablet.ec 10/16/19 Sennosides/Docusate Sodium [Pericolace -] 2 tablet PO BID tablet 10/16/19 oxyCODONE SR [Oxycontin] 10 mg PO BID tab.er.12h MDD 2 10/16/19 traMADol HCL [Ultram -] 50 mg PO Q3H PRN tablet MDD 6 10/16/19
[2019-10-16 12:00] VITALS: BP 126/50; PULSE 85; TEMP 97.7
--- NOTE | 2019-10-16 12:59 | ECHO ---
Name: AYAKA CABALLERO Exam:Adult Echocardiogram Study Date: 10/16/2019 12:01 PM Age: 69 yrs Height: 65 in Weight: 322 lb BSA: 2.4 m2 MMode/2D Measurements & Calculations IVSd: 1.3 cm Ao root diam: 3.4 cm LVIDd: 6.0 cm LA dimension: 5.0 cm LVIDs: 3.9 cm LVPWd: 1.3 cm LVPWs: 1.6 cm EDV(Teich): 181.1 ml ESV(Teich): 64.2 ml LVOT diam: 2.6 cm Doppler Measurements & Calculations MV E max aleksey: 106.0 cm/sec MV A max aleksey: 85.7 cm/sec MV dec slope: 890.2 cm/sec2 MV E/A: 1.2 Ao V2 max: 174.3 cm/sec LV V1 max P.7 mmHg Ao max P.2 mmHg LV V1 max: 82.2 cm/sec YARELIS(V,D): 2.4 cm2 MR max aleksey: 421.6 cm/sec PA V2 max: 133.5 cm/sec MR max P.1 mmHg PA max P.1 mmHg Procedure The study was technically difficult with many images being suboptimal in quality. Left Ventricle The left ventricle is mildly dilated. Left ventricular systolic function is moderate to severely redu abrahan. Regional wall motion abnormalities cannot be excluded due to limited visualization. There is moderate to severe global hypokinesis of the left ventricle. Consider repeat study as outpatient with contrast to better visualize segmental wall motion. Right Ventricle The right ventricle is grossly normal size. The right ventricular systolic function is grossly normal . Atria The left atrium is mildly dilated. Mitral Valve The mitral valve is grossly normal. There is no mitral valve stenosis. There is mild mitral regurgita tion. Tricuspid Valve The tricuspid valve is normal in structure and function. There is mild tricuspid regurgitation. Right ventricular systolic pressure is normal. Aortic Valve There is mild aortic sclerosis.;. No hemodynamically significant valvular aortic stenosis. No aortic regurgitation is present. Pulmonic Valve The pulmonic valve is not well seen, but is grossly normal. There is no pulmonic valvular stenosis. Great Vessels The aortic root is normal size. Pericardium/Pleura There is no pericardial effusion. Interpretation Summary The study was technically difficult with many images being suboptimal in quality. The left ventricle is mildly dilated. Regional wall motion abnormalities cannot be excluded due to limited visualization. Left ventricular systolic function is moderate to severely reduced. There is moderate to severe global hypokinesis of the left ventricle. Consider repeat study as outpatient with contrast to better visualize segmental wall motion. The left atrium is mildly dilated. There is mild mitral regurgitation. There is mild tricuspid regurgitation. There is mild aortic sclerosis.; MD Enrique Coyne 10/16/2019 12:58 PM
--- NOTE | 2019-10-19 14:00 | PATH ---
Surgical Pathology Report Patient Name: AYAKA CABALLERO Med. Rec. #: [id number] /Age/Gender: 1950 (Age: 69) / M Account: [id number] Location: [facility] Taken: 10/13/2019 Received: 10/13/2019 Reported: 10/19/2019 Physicians: Abraham Royal M.D. Specimen(s) Received LEFT KNEE BONE FRAGMENTS Clinical History Left knee osteoarthritis Final Diagnosis KNEE BONES, LEFT, TOTAL KNEE REPLACEMENT: DEGENERATIVE JOINT DISEASE. Electronically Signed Cindy España M.D. Gross Description Received in formalin labeled "left knee bones," is a 6.8 x 6.0 x 1.3 cm aggregate of de leon-yellow portions of bone and soft tissue, consistent with knee bones. One of the portions displays a 1.1 cm in greatest dimension area of eburnation. The remaining articular surfaces are de leon-yellow and diffusely granular. The underlying trabecular bone is yellow and hard. Reporting Consultant sections are submitted in one cassette, following decalcification. 10/16/2019 [facility]10/16/2019
== END 2019-10-16 13:02 | DRG 469 ==
LOC: FM/S 06:35 → UNDOADMIN 06:35 → FM/S 12:19
PROVIDERS: ADMIT Orthopaedic Surgery; ATTEND Orthopaedic Surgery
PROC: 8E0Y0CZ Robotic Assisted Procedure of Lower Extremity, Open Approach (ICD-10-PCS; 2019-10-13)
PROC: 0SRD0JA Replacement of Left Knee Joint with Synthetic Substitute, Uncemented, Open Approach (ICD-10-PCS; principal; 2019-10-13 09:58)
DX: M17.12 Unilateral primary osteoarthritis, left knee (principal); J18.9 Pneumonia, unspecified organism; I42.8 Other cardiomyopathies; I10 Essential (primary) hypertension; E78.5 Hyperlipidemia, unspecified; K21.9 Gastro-esophageal reflux disease without esophagitis; E11.9 Type 2 diabetes mellitus without complications; E66.9 Obesity, unspecified; Z68.38 Body mass index [BMI] 38.0-38.9, adult; R61 Generalized hyperhidrosis; R06.00 Dyspnea, unspecified; K59.09 Other constipation; I44.7 Left bundle-branch block, unspecified; Z87.891 Personal history of nicotine dependence
CPT/HCPCS: 36415; 71045-TC-FY; 71275-TC; 73560-TC-LT-FY; 80053; 81003; 81015; 82550; 82962; 83880; 84484; 85025; 85027; 85379; 87040; 87070; 87086; 87205; 87804; 87899; 88304-TC; 88311-TC; 93005; 93306-TC; 94760; 97116-GP; 97163-GP; Q9967